=== PATIENT | female | born 1985 ===

== ENCOUNTER → 2024-10-01 | Outpatient (CLI) | payer OTHER ==
[2024-10-08 12:29] LABS: HPV HIGH RISK BY TMA Not Detected; HPV SOURCE Cervical
== END ==
LOC: LAB 10:59 → LAB SHORT 10:59
PROVIDERS: Student in an Organized Health Care Education/Training Program
DX: Z87.42 Personal history of other diseases of the female genital tract (principal)
CPT/HCPCS: 87624; G0123